=== PATIENT | female | born 1995 | race Caucasian/White ===

== ENCOUNTER → 2017-05-15 | Day surgery (SDC) | payer OTHER ==
[~2017-05-15] VITALS: Ht 165.1 cm; Wt 65.8 kg
--- NOTE | 2017-05-15 11:40 | Operative Report ---
Operative/Inv Procedure Report Surgery Date: 05/15/17 Name of Procedure: Right knee medial patellofemoral ligament reconstruction with hamstring autograft. Right knee arthroscopy with removal of loose body adn shaving chondroplasty. Pre-Operative Diagnosis: Right knee recurrent lateral patella dislocation; loose body Post-Operative Diagnosis: Right knee recurrent lateral patella dislocation; loose body Estimated Blood Loss: scant Surgeon/Licensed Physical Therapy Assistant: Wally CADENA,Derick Bach MD Anesthesia: laryngeal mask airway, block Implants: Mitek Eli screw 5x23mm Urine Output: N/A Drains: None Specimens: Loose body Microbiology: None Tourniquet: 110min at 300mmHg Complications: None Condition: Stable Operative Indication: Diane Dent is a 21-year-old female who presented to clinic with recurrent right lateral patellar dislocation. Her initial injury occurred in 2015 while participating in dance. She was initially treated conservatively, with physical therapy, anti-inflammatories, and bracing. In March 2017, she was participating in dance and had a recurrent dislocation of the right patella despite wearing a patellar stabilizing brace. She had immediate pain, swelling, and noted a frequent catching sensation following reduction of the patella. Imaging of the knee was consistent with recent patellar dislocation, as well as a loose body in the suprapatellar pouch. After discussing the risks, benefits, and alternatives to surgery with the patient and her parents, she is opted to proceed with right knee arthroscopy for loose body removal and shaving chondroplasty, and open MPFL reconstruction with hamstring autograft. Operative/Procedure Note Note: Diane Dent arrived at [facility] on 05/15/2017. She was met in the preoperative area, where her operative extremity was marked and her medical history was reviewed. All questions were answered for the patient and her parents. She was then taken into the operating room and placed supine on the operating table. All bony prominences were padded. A timeout procedure was performed, in which the patient, operative extremity, and planned procedure were verified. The patient was induced under general anesthesia. IV cefazolin was administered for antibiotic prophylaxis and SCD was applied to the left lower leg. A regional block to the right lower leg was performed by the anesthesia service using ultrasound guidance. A nonsterile tourniquet was applied to the right upper leg and the right lower extremity was prepped and draped in the usual sterile fashion. The knee in flexion a standard inferolateral portal was created for the arthroscopic portions procedure. The camera was introduced into the knee joint and the knee was taken into extension. The undersurface of the patella was noted to have significant fraying cartilage damage on the medial surface consistent with her patellar reentry injury. No loose bodies were seen in either the medial or lateral gutters. With the knee in flexion a standard inferomedial portal was created after localization with a spinal needle. This was used to introduce a probe into the joint which was used to evaluate the medial and lateral compartments. The medial compartment was entered with the knee in extension with a valgus load. There was no cartilage damage noted and the meniscus was in good condition. The lateral compartment was entered with the knee in a figure 4 position. There was slight fraying of the lateral meniscus however no cartilage damage the lateral tibial plateau. The far lateral aspect of the lateral femoral condyle was noted to have a cartilage injury consistent with her recent patellar dislocation. The ACL was noted to be in good condition. The arthroscope was taken through the knee for evaluation in search of the suspected loose body. The camera was taken into the posterior knee using a modified Gillquist maneuver through the medial portal and a large loose body was noted. The camera was carefully drawn from posterior to anterior with suction in place and a loose body found in the anterior knee. This was carefully removed using a grasper and measured approximately 10 mm by 8 mm. Per hospital policy, the fragment was sent for pathology. The arthroscopic instruments were then removed from the knee and any excess fluid was evacuated. We proceeded with harvesting of the gracilis tendon for autograft. A small incision was made over the medial anterior tibia approximately 5-7 cm below the medial joint line. This was taken through skin subcutaneous tissue down to sartorial fascia overlying the pes anserinus. A reverse L-shaped incision was made in the fascia lifting it from lateral to medial. The undersurface of the sartorial fascia, the gracilis and semitendinosus tendons were identified. Using a right angle clamp, the gracilis was from the fascia and isolated. A 0 Vicryl stitch was placed in the distal end of the tendon. Any associated bands were removed and the tendon was carefully harvested using a hamstring stripper. The tendon was taken to the back table for preparation. Any excess muscle was removed. The tendon was measured at 250 mm. A second 0 Vicryl stitch was placed at the proximal end of the tendon was left on the back table in vancomycin soaked Ray-Laquita. Attention was turned back to the leg. The knee was placed over a radiolucent triangle. A medial parapatellar incision was made over the superior aspect of the patella. This was taken through skin and subcutaneous tissue down to the overlying retinaculum. This was opened carefully and the plane between the capsule and the retinaculum was identified for passage of the MPFL graft. An arthrotomy was then made along the medial aspect of the patella. The length of the patella was measured, and marked at approximately 50%. A 3.2 mm drill was used to create a steep tunnel from medial to lateral extending approximately one third of the distance across the patella. A second drill hole parallel to an approximately 1 cm proximal to the first drill hole. The gracilis graft was then taken from the back table and carefully shuttled through the steep drill holes in the patella. The graft was looped in such a way that the two Vicryl sutures in the respective ends of the graft both exited medial. Fluoroscopy was then brought in to verify the position the attachment on the medial femoral condyle. A small incision was made over the medial femoral condyle, which was taken through skin and subcu tissue down to the abductor tubercle. A Beath pin was then positioned. Using fluoroscopy, Schottles point was identified using the posterior cortex of the femur, Blumensaat's line, and the intersection of the femoral condyles with the posterior cortex. Once this spot was identified, the Beath pin was driven from medial to lateral. It was also angled slightly proximal and slightly anterior. Once positioned the graft was carefully passed between the retinaculum and capsule. The limbs of the graft were wrapped around the beath pin, and the knee was taken through range of motion to verify isometry. The patella was noted to be slightly loose in extension, and tensioned appropriately when the knee went into flexion. The limbs of the graft did not move with motion of the knee. The pin was therefore left in place. The graft was protected and the pin overdrilled with a 6 mm reamer to a depth of approximately 55 mm. The sutures of the gracilis graft were then passed through the eyelet of the Beath pin which was pulled from medial to lateral. The tunnel position was located with a nitinol wire. The knee was again taken through careful range of motion to verify isometry. Once confirmed, a 5 mm x 23 mm Eli screw was placed over the nitinol wire, securing the graft limbs. The knee was again taken through range of motion, and noted to be slightly tight. Screwdriver was therefore used to back the screw of 1-2 turns to loosen the graft slightly. The incisions were copiously irrigated with normal saline. A #1 Vicryl suture was used to close the sartorial fascia on the pes anserinus. It was also used to close the medial patellar arthrotomy as well as reapproximate the medial retinaculum. The incisions were then closed in layers using 0 Vicryl, 2-0 Vicryl, and running 3-0 Prolene sutures. The arthroscopic portals were closed using #3-0 Prolene in an interrupted fashion. The incisions were dressed with Steri-Strips, gauze, and Webril. Tourniquet was released after 110 minutes. The right lower extremity was wrapped with an Jose bandage from foot to mid thigh , and a hinged brace was placed. The patient was extubated and taken from the operating room to the postanesthesia recovery unit in stable condition.
--- NOTE | 2017-05-15 16:08 | RADIOLOGY REPORT ---
EXAMINATION: XR KNEE, RIGHT CLINICAL INFORMATION: Right knee and MPL reconstruction, removal loose bodies. COMPARISON: None TECHNIQUE: 6 intraoperative spot images obtained under the direction of Dr. Lo of the right knee. FINDINGS: Several of the images demonstrate partial obscuration of the knee joint from the devices used in the orthopedic procedure. Fluoroscopy time reported as 34 seconds. IMPRESSION: Intraoperative spot images obtained during surgical procedure as above. The procedure was reported as right knee arthroscopy.
== END ==
LOC: STS 02:08
DX: M22.01 Recurrent dislocation of patella, right knee (principal); M25.861 Other specified joint disorders, right knee
CPT/HCPCS: 36415; 73560-RT; 81025; J0131; J0690; J2250; J3370